=== PATIENT | male | born 1995 | race Caucasian/White ===

== ENCOUNTER 2018-02-07 12:30 | Inpatient (IN) | payer BC ==
[~2018-02-07] VITALS: Ht 172.7 cm; Wt 71.2 kg
--- NOTE | ~2018-02-07 | H ---
[facility] [place] [address] HISTORY AND PHYSICAL Name: GIBRAN KEYES Room #: 203-P ADM IN M.R.#: [id number] Admission: 02/07/18 Attend Phys: Jackie Pappas MD Discharge: Date of : 95 Report #: [id number] THIS REPORT FOR: //name// CC: Jackie Pappas DATE OF SERVICE: 02/07/2018 HISTORY OF PRESENT ILLNESS: The patient is a 22-year-old male who was brought to the emergency room because of infection around his ankles. The patient indicated that he has been using heroin for many years, but unfortunately over the last 2 months, he went ahead and switched himself to injections and has been giving himself injections into the ankles and into the ankles and wrists and had dorsum of the hands. The patient started to have some increasing swelling and redness in the area. For this reason, his mom brought him to the emergency room to be evaluated. PAST MEDICAL HISTORY: Significant for drug addiction and severe anxiety and depression. MEDICATIONS: The patient's medications at home include Effexor 75 mg daily, Remeron 15 mg daily, BuSpar 15 mg three times a day. ALLERGIES: No known drug allergies. SOCIAL HISTORY: The patient denies alcohol use, denies any other type of drug use. FAMILY HISTORY: Noncontributory. PHYSICAL EXAMINATION: VITAL SIGNS: Showed a temperature of 97.3, pulse 109, respirations 16, blood pressure 98/62 and last blood pressure is 129/42. HEAD AND NECK: Unremarkable. NECK: Supple. LUNGS: Clear to auscultation with good air entry bilaterally. CARDIAC: S1, S2, without any murmur or gallop. ABDOMEN: Benign. Bowel sounds were positive. EXTREMITIES: The patient has erythema and edema around the ankles according to the mother that the redness is much better than yesterday. The patient does not have any lymph node enlargement in the groin area. LABORATORY DATA: On arrival to the hospital, the patient's CBC showed a white count of 12.6, hemoglobin 14.4, hematocrit 42.0, platelet count 237, neutrophils are 74.8. Lactic acid 0.6. The patient's comprehensive metabolic panel showed a glucose of 113 and alkaline phosphatase of 20. Drug screen was positive for opioids. Repeated CBC showed a white count of 17.6, hemoglobin 13.8, hematocrit [facility] [address] [place] [address] HISTORY AND PHYSICAL Name: GIBRAN KEYES Room #: 203-P [facility] IN [facility].#: [id number] Admission: 02/07/18 Attend Phys: Jackie Pappas MD Discharge: Date of : 95 Report #: [id number] 41.2, platelet count 265. Basic metabolic panel continued to be stable with a chloride of 108 and glucose of 126. ASSESSMENT AND PLAN: 1. Cellulitis of both lower extremities. 2. Intravenous drug abuse. 3. Anxiety and depression. The patient was admitted to the hospital with the above-mentioned diagnoses. The patient will continue the use of vancomycin for now. The patient to resume his psychotropic medications. The patient was counseled extensively about the importance of quitting drugs and the use of drugs. The patient is planned to go for inpatient rehabilitation after finishing from the acute care. <ELECTRONICALLY SIGNED> By: Jackie Pappas MD 02/09/18 1010 [id number] [id number] Jackie Pappas MD /nt
--- NOTE | ~2018-02-07 | 2DMMODE ---
[facility] [place] [address] 2 D/M-MODE ECHOCARDIOGRAM Name: WALIGIBRAN Room #: 203-P ADM IN M.R.#: [id number] Admission: 02/07/18 Attend Phys: Jackie Pappas MD Discharge: Date of : 95 Date of Service: 02/09/18 0821 Report #: [id number] THIS REPORT FOR: //name// APPROVED REPORT Study performed: 02/08/2018 09:59:53 EXAM: Comprehensive 2D, Doppler, and color-flow Echocardiogram Patient Location: Bedside Room #: 203 Status: on-call BSA: 1.84 HR: 70 bpm BP: 111/61 mmHg Rhythm: NSR Other Information Study Quality: Good Risk Factors: Cardiac Risk Factors: Tobacco Indications Tachycardia IV Drug Abuse R/O Valvular Vegetation 2D Dimensions IVSd: 8.04 (7-11mm) LVOT Diam: 19.00 (18-24mm) LVDd: 46.18 mm PWd: 9.53 (7-11mm) Ascending Ao: 26.41 (22-36mm) LVDs: 29.74 (25-40mm) Aortic Root: 26.34 mm LV Single Plane 4CH: 65.64 % LV Single Plane 2CH: 62.61 % Biplane EF: 64.4 % Volumes Left Atrial Volume (Systole) Single Plane 4CH: 26.63 mL Single Plane 2CH: 24.03 mL LA ESV Index: 17.00 mL/m2 Aortic Valve AoV Peak Ed.: 1.47 m/s AO Peak Gr.: 8.70 mmHg [facility] [address] [place] [address] 2 D/M-MODE ECHOCARDIOGRAM Name: WALIGIBRAN Room #: 203-P [facility] IN ..#: [id number] Admission: 02/07/18 Attend Phys: Jackie Pappas MD Discharge: Date of : 95 Date of Service: 02/09/18 0821 Report #: [id number] Mitral Valve E/A Ratio: 1.6 MV Decel. Time: 250.76 ms MV E Max Ed.: 0.99 m/s MV A Ed.: 0.61 m/s MV PHT: 72.72 ms IVRT: 51.90 ms TDI E/Lateral E': 6.60 E/Medial E': 7.62 Medial E' Ed.: 0.13 m/s Lateral E' Ed.: 0.15 m/s Pulmonary Valve PV Peak Ed.: 0.99 m/s PV Peak Gr.: 3.92 mmHg NJ End Vmax: 0.88 m/s Pulmonary Vein P Vein S: 0.58 m/s P Vein A: 0.28 m/s P Vein D: 0.63 m/s P Vein A Dur.: 100.3 msec P Vein S/D Ratio: 0.92 Tricuspid Valve TR Peak Ed.: 1.93 m/s RAP Estimate: 7.00 mmHg TR Peak Gr.: 14.88 mmHg PA Pressure: 22.00 mmHg Left Ventricle The left ventricle is normal size. There is normal LV segmental wall motion. There is normal left ventricular wall thickness. Left ventricular systolic function is normal. The left ventricular ejection fraction is within the normal range. LVEF is 60-65%. The left ventricular diastolic function is normal. Right Ventricle The right ventricle is normal size. The right ventricular systolic function is normal. Atria The left atrium size is normal. The right atrium size is normal. Aortic Valve The aortic valve is normal in structure. No aortic regurgitation is present. There is no aortic valvular stenosis. [facility] [address] [place] [address] 2 D/M-MODE ECHOCARDIOGRAM Name: GIBRAN KEYES Room #: 203-P [facility] IN [facility]#: [id number] Admission: 02/07/18 Attend Phys: Jackie Pappas MD Discharge: Date of : 95 Date of Service: 02/09/18 0821 Report #: [id number] Mitral Valve The mitral valve is normal in structure. There is no mitral valve regurgitation noted. No evidence of mitral valve stenosis. Tricuspid Valve The tricuspid valve is normal in structure. Trace tricuspid regurgitation. Pulmonary artery pressure is 22 mmHg. Pulmonic Valve The pulmonary valve is normal in structure. Mild to moderate pulmonic regurgitation. Great Vessels The aortic root is normal in size. IVC is normal in size and collapses >50% with inspiration. Pericardium There is no pericardial effusion. <Conclusion> The left ventricle is normal size. LVEF is 60-65%. The left ventricular diastolic function is normal. The right ventricle is normal size. The left atrium size is normal. The aortic valve is normal in structure. The mitral valve is normal in structure. Trace tricuspid regurgitation. Pulmonary artery pressure is 22 mmHg. The aortic root is normal in size. There is no pericardial effusion. <ELECTRONICALLY SIGNED> By: Ren Bejarano MD, FACC 02/09/18820 0 0 Ren Bejarano MD, FACC /INF
--- NOTE | ~2018-02-07 | PATH ---
[facility] [address] [place] [address] PATHOLOGY RPT PROCEDURE Name: GIBRAN JACK Room #: 203-P DIS IN M.R.#: [id number] Admission: 02/07/18 Date of : 95 Discharge: 02/11/18 Report #: [id number] Path Case #: [id number] [facility] Accession Number: [id number] . 01 Material submitted: . RECTAL SIGMOID BIOPSIES . 01 Clinical history: . Abnormal CT, proctitis Rule out IBD and infection . 02 Diagnosis: Colonic mucosa, "rectosigmoid biopsy": - Fragments of colonic mucosa with no obvious diagnostic changes of inflammatory bowel disease or infectious colitis. - Suggest clinical correlation. . (SHA:mmnati; 02/12/18) QLM/02/12/2018 . 02 Electronically signed: . Leo Hopkins MD, Pathologist NPI- [id number] . 01 Gross description: . The specimen is received in formalin, labeled "Gibran Jack, rectal/sigmoid BX rule out infection, rule out IBD", are several augustin soft tissues fragment measuring 0.7 x 0.5 x 0.1 cm in aggregate, entirely submitted in A1. (SWS; 02/11/2018) SHS/SHS . 02 Pathologist provided ICD-10: R93.89 . 02 CPT . 173221 Specimen Comment: A courtesy copy of this report has been sent to Specimen Comment: [phone], . Specimen Comment: Report sent to / DR BENJAMIN Performed at: [address], [place], [place] [id number] MD Huang White MD Phone: [phone] Performed at: [address] [id number] [address] [address] PATHOLOGY RPT PROCEDURE Name: GIBRAN JACK Room #: 203-P DIS IN M.R.#: [id number] Admission: 02/07/18 Date of : 95 Discharge: 02/11/18 Report #: [id number] Path Case #: [id number] MD Kristine Lantigua MD Phone: [phone]
[2018-02-07 12:46] VITALS: BP 98/62
[2018-02-07] MEDS ORDERED: EFFEXOR 5050 MG/1 T1 PO (12:50)
[2018-02-07] MEDS ORDERED: BUSPIRONE HCL10 MG PO (12:50)
[2018-02-07] MEDS ORDERED: CLEOCIN HCL150 MG PO (12:50)
[2018-02-07] MEDS ORDERED: REMERON15 MG PO (12:51)
[2018-02-07 13:34] LABS: ABSOLUTE NEUTROPHILS 9.5 thou/uL (1.4-8.2); BASOPHILS 0.2 % (0.0-2.0); EOSINOPHILS 0.2 % (0.0-3.0); HEMOGLOBIN 14.4 gm/dL (14.0-18.0); LYMPHOCYTES 14.3 % (24.0-44.0); MCH 29.2 pg (26.0-34.0); MCHC 34.4 g/dL (28.0-37.0); MCV 84.9 fL (80.0-100.0); MONOCYTES 10.5 % (1.0-8.0); PLATELET COUNT 237 thou/uL (150-400); POLYS 74.8 % (36.0-66.0); RBC 4.94 mil/uL (4.50-6.00); RDW 12.8 % (10.5-14.5); WBC 12.6 thou/uL (4.0-11.0)
[2018-02-07 13:36] LABS: CALCIUM 9.2 mg/dL (8.5-10.1); CREATININE 0.9 mg/dL (0.7-1.3); POTASSIUM 3.6 mmol/L (3.5-5.1)
[2018-02-07 13:51] LABS: ALBUMIN 3.4 g/dL (3.4-5.0); TOTAL BILIRUBIN 0.8 mg/dL (<0.1-1.0); TOTAL PROTEIN 7.8 g/dL (6.4-8.2)
[2018-02-07 14:11] LABS: AMP/METHAMP Negative (Negative); BARBITURATES Negative (Negative); BENZODIAZEPINES Negative (Negative); COCAINE Negative (Negative); METHADONE Negative (Negative); OPIATES POSITIVE (Negative); PCP Negative (Negative)
[2018-02-07 15:05] VITALS: BP 105/65
[2018-02-07 16:14] VITALS: BP 101/68
[2018-02-07 16:25] VITALS: BP 102/62
[2018-02-07 19:01] VITALS: BP 129/65
[2018-02-08 00:11] VITALS: BP 109/58
[2018-02-08 04:31] VITALS: BP 129/42
[2018-02-08 04:55] LABS: HEMATOCRIT 41.2 % (42.0-52.0); HEMOGLOBIN 13.8 gm/dL (14.0-18.0); MCH 28.7 pg (26.0-34.0); MCHC 33.5 g/dL (28.0-37.0); MCV 85.6 fL (80.0-100.0); RBC 4.81 mil/uL (4.50-6.00); RDW 12.7 % (10.5-14.5); WBC 17.6 thou/uL (4.0-11.0)
[2018-02-08 05:07] LABS: CALCIUM 9.1 mg/dL (8.5-10.1); CREATININE 0.9 mg/dL (0.7-1.3); POTASSIUM 3.9 mmol/L (3.5-5.1)
[2018-02-08 07:30] VITALS: BP 111/61
[2018-02-08 11:41] VITALS: BP 107/56
[2018-02-08 16:14] VITALS: BP 114/68
[2018-02-08 19:00] VITALS: BP 104/45
[2018-02-09 02:19] LABS: ABSOLUTE NEUTROPHILS 7.8 thou/uL (1.4-8.2); BASOPHILS 0.2 % (0.0-2.0); EOSINOPHILS 0.2 % (0.0-3.0); HEMATOCRIT 40.5 % (42.0-52.0); HEMOGLOBIN 13.6 gm/dL (14.0-18.0); LYMPHOCYTES 22.2 % (24.0-44.0); MCH 28.7 pg (26.0-34.0); MCHC 33.6 g/dL (28.0-37.0); MCV 85.4 fL (80.0-100.0); MONOCYTES 10.7 % (1.0-8.0); PLATELET COUNT 256 thou/uL (150-400); POLYS 66.7 % (36.0-66.0); RBC 4.74 mil/uL (4.50-6.00); RDW 13.1 % (10.5-14.5); WBC 11.7 thou/uL (4.0-11.0)
[2018-02-09 02:29] LABS: CALCIUM 8.8 mg/dL (8.5-10.1); CREATININE 0.8 mg/dL (0.7-1.3); POTASSIUM 3.7 mmol/L (3.5-5.1)
[2018-02-09 03:35] VITALS: BP 109/65
[2018-02-09 07:35] VITALS: BP 109/54
[2018-02-09 11:35] VITALS: BP 103/59
[2018-02-09 16:20] VITALS: BP 108/62
[2018-02-09 19:25] VITALS: BP 108/57
[2018-02-10 04:18] LABS: HEMATOCRIT 40.5 % (42.0-52.0); HEMOGLOBIN 14.1 gm/dL (14.0-18.0); MCH 29.2 pg (26.0-34.0); MCHC 34.7 g/dL (28.0-37.0); MCV 84.1 fL (80.0-100.0); PLATELET COUNT 282 thou/uL (150-400); RBC 4.81 mil/uL (4.50-6.00); RDW 12.7 % (10.5-14.5); WBC 10.4 thou/uL (4.0-11.0)
[2018-02-10 04:22] LABS: CALCIUM 8.9 mg/dL (8.5-10.1); CREATININE 0.8 mg/dL (0.7-1.3)
[2018-02-10 04:33] VITALS: BP 109/64
[2018-02-10 05:00] LABS: ABSOLUTE NEUTROPHILS 6.1 thou/uL (1.4-8.2); ATYPICAL LYMPHS 1 %
[2018-02-10 07:20] VITALS: BP 97/53
[2018-02-10 11:20] VITALS: BP 105/52; BP 1052/52
[2018-02-10 17:00] VITALS: BP 128/81
[2018-02-10 20:33] VITALS: BP 107/66
[2018-02-11 03:07] VITALS: BP 102/55
[2018-02-11 12:08] LABS: HIV ANTIBODY Non Reactive (Non Reactive)
[2018-02-11 16:10] LABS: HEPATITIS C VIRUS AB <0.1 (0.0-0.9)
== END 2018-02-11 15:40 | DRG 603 ==
LOC: ER 12:30 → EROBS 14:31 → 2N 14:31
PROVIDERS: Internal Medicine; Internal Medicine Gastroenterology; Nurse Practitioner Family
PROC: 0DBN8ZX Excision of Sigmoid Colon, Via Natural or Artificial Opening Endoscopic, Diagnostic (ICD-10-PCS; principal; 2018-02-11)
PROC: 0DBP8ZX Excision of Rectum, Via Natural or Artificial Opening Endoscopic, Diagnostic (ICD-10-PCS; principal; 2018-02-11)
DX: L03.116 Cellulitis of left lower limb (principal); F32.9 Major depressive disorder, single episode, unspecified; L03.115 Cellulitis of right lower limb; F41.9 Anxiety disorder, unspecified; F17.290 Nicotine dependence, other tobacco product, uncomplicated; K63.89 Other specified diseases of intestine; F11.10 Opioid abuse, uncomplicated; K62.89 Other specified diseases of anus and rectum; K59.09 Other constipation; Z79.899 Other long term (current) drug therapy; Z23 Encounter for immunization
CPT/HCPCS: 10081; 62110; 62900; 70005